=== PATIENT | female | born 1975 | race American Indian/Alaskan Native ===

== ENCOUNTER 2018-01-25 14:33 | Outpatient (CLI) | payer MEDICAID ==
--- NOTE | 2018-01-26 14:04 | Mammography Report ---
BILATERAL DIGITAL SCREENING MAMMOGRAM WITH CAD:01/25/18 CLINICAL: Baseline screening. COMPARISON:None. FINDINGS: The breasts are heterogeneously dense, which may obscure small masses.Bilateral parenchymal asymmetries and architectural distortion require additional imaging. No suspicious calcifications. IMPRESSION: Bilateral asymmetries and architectural distortion requiring further workup. BI-RADS CATEGORY: 0 -- Needs Additional Imaging RECOMMENDATION: Recall for bilateral ML and spot magnification views and bilateral breast ultrasound if needed. ACR BI-RADS MAMMOGRAPHIC CODES: 0 = Needs additional imaging evaluation; 1 = Negative; 2 = Benign; 3 = Probably benign; 4 = Suspicious; 5 = Malignant; 6 = Known biopsy-proven malignancy COMMENT: 1. Dense breast tissue, i.e., adenosis, fibrocystic changes, etc., may obscure an underlying neoplasm. 2. Approximately 10% of cancers are not detected with mammography. 3. A negative mammography report should not delay biopsy if a clinically suspicious mass is present.
== END 2018-01-25 14:34 | disposition home or self-care (01) ==
LOC: MAMMO 14:33
PROVIDERS: ATTEND Nurse Practitioner Gerontology
DX: Z12.31 Encounter for screening mammogram for malignant neoplasm of breast (principal); J45.909 Unspecified asthma, uncomplicated
CPT/HCPCS: 77067

== ENCOUNTER 2018-02-14 08:07 | Outpatient (CLI) | payer MEDICAID ==
--- NOTE | 2018-02-14 09:41 | Mammography Report ---
BILATERAL DIGITAL DIAGNOSTIC MAMMOGRAM and RIGHT BREAST ULTRASOUND: 02/14/18 08:07:00 CLINICAL: Recalled for bilateral asymmetries. COMPARISON:01/25/18 mammogram FINDINGS: Bilateral LM and spot magnification views were performed.Left asymmetries demonstrate satisfactory effacement. An oval right outer density persists on spot views. Ultrasound of the upper outer right breast was performed and demonstrated a solid heterogeneous hypoechoic mass at 10 o'clock 5 cm from the nipple. It measures 11 x 11 x 11 mm and correlates with the mammographic density. The mass demonstrates mild shadowing and has a lobular contour. IMPRESSION: A solid 1.1 cm right breast mass at 10 o'clock 5 cm from the nipple. Recommend ultrasound guided needle core biopsy confirm adenosine. Negative left breast. BI-RADS CATEGORY: 4--Suspicious The patient was notified by the technologist of the recommendation for needle biopsy at the time of the examination. ACR BI-RADS MAMMOGRAPHIC CODES: 0 = Needs additional imaging evaluation; 1 = Negative; 2 = Benign; 3 = Probably benign; 4 = Suspicious; 5 = Malignant; 6 = Known biopsy-proven malignancy COMMENT: 1. Dense breast tissue, i.e., adenosis, fibrocystic changes, etc., may obscure an underlying neoplasm. 2. Approximately 10% of cancers are not detected with mammography. 3. A negative mammography report should not delay biopsy if a clinically suspicious mass is present. COMMENT: Patient follow-up letters are generated via our [employer] application.
== END 2018-02-14 08:08 | disposition home or self-care (01) ==
LOC: MAMMO 08:07
PROVIDERS: ATTEND Advanced Practice Midwife
DX: N63.11 Unspecified lump in the right breast, upper outer quadrant (principal); Z80.3 Family history of malignant neoplasm of breast
CPT/HCPCS: 77066